=== PATIENT | female | born 1935 | race Caucasian/White ===

== ENCOUNTER 2021-02-07 08:59 | Observation (INO) ==
[2021-02-07 10:39] LABS: Basophils % 0.6 % (0.0-0.8); Eosinophils # 0.6 10*3/uL (0.0-0.87); Eosinophils % 9.3 % (0.00-10.9); Hematocrit 42.4 VOL% (35.7-47.0); Hemoglobin 12.8 GM/DL (12.0-16.0); Immature Granulocytes % 0.6 %; Immature Granulocytes Absolute 0.04 #; Lymphocytes # 1.7 10*3/uL (1.4-4.0); Lymphocytes % 26.4 % (21.3-54.2); Mean Corpuscular HGB Conc 30.2 GM/DL (32-36); Mean Corpuscular Volume 81.2 FL (87-102); Mean Platelet Volume 10.3 FL (9.6-12.0); Monocytes % 10.2 % (1.7-12.7); Neutrophils % 52.9 % (38.7-73.9); Platelet Count 313 T/CUMM (130-400); Red Blood Count 5.22 MC/CUMM (3.8-5.5); Red Cell Distribution Width 15.3 % (9.3-17.3); White Blood Count 6.3 T/CUMM (4-12)
[2021-02-07 10:54] LABS: Alanine Aminotransferase 18 U/L (13-56); Albumin 3.9 G/DL (3.4-5.0); Alkaline Phosphatase 83 U/L (45-117); Aspartate Amino Transferase 10 U/L (0-37); Bilirubin,Total < 0.39 MG/DL (0.20-1.00); Blood Urea Nitrogen 18 MG/DL (7-18); Calcium 9.2 MG/DL (8.5-10.1); Carbon Dioxide 27 MMOL/L (21-32); Estimated Glom Filtration Rate 66 ML/MIN; Glucose 96 MG/DL (74-106); Osmolality,Calculated 289.7 MOS/KG (273-304); Potassium 4.3 MMOL/L (3.5-5.1); Sodium 145 MMOL/L (136-145); Total Protein 6.9 G/DL (6.4-8.2)
[2021-02-07] MEDS ORDERED: hydrALAZINE 20 MG/1 ML VIAL IV STA (15:59)
[2021-02-07] MEDS ORDERED: LABETALOL 20 MG/4 ML SYRINGE IV STA (17:08)
[2021-02-07] MEDS ORDERED: LORazepam 2 MG/1 ML VIAL IM STA (17:20)
[2021-02-07 17:59] LABS: Bilirubin,Urine Negative (Negative); Blood, Urine Negative (Negative); Glucose,Urine (UA) Negative (Negative); Ketones,Urine Negative (Negative); Nitrite,Urine Negative (Negative); Protein,Urine Negative; RBC,Urine 3 /HPF (0-4); Squamous Epithelial Cell,Urine Occasional /HPF (0-10); Urine Appearance CLEAR (Clear); Urine Color Straw (Yellow); Urine Specific Gravity 1.008 (1.001-1.035); Urine Urobilinogen < 2.0 EU/DL (<2.0)
[2021-02-07] MEDS ORDERED: hydrALAZINE 20 MG/1 ML VIAL IV PRN (18:34)
[2021-02-07] MEDS ORDERED: ONDANSETRON 4 MG/2 ML VIAL IV PRN (18:34)
[2021-02-07] MEDS ORDERED: ACETAMINOPHEN 325 MG TABLET PO PRN (18:34)
[2021-02-07] MEDS ORDERED: LORazepam 2 MG/1 ML VIAL IV PRN (18:45)
[2021-02-07] MEDS ORDERED: MECLIZINE 25 MG TABLET PO PRN (18:56)
[2021-02-08] MEDS ORDERED: cycloSPORINE OPH EMUL 1 VIAL BOTH EYES PRN (00:57)
[2021-02-08] MEDS ORDERED: CYANOCOBALAMIN 1000 MCG/1 ML VIAL IM SCH (01:00)
[2021-02-08] MEDS ORDERED: TOPIRAMATE 100 MG TABLET PO SCH (01:00)
[2021-02-08] MEDS ORDERED: GABAPENTIN 600 MG TABLET PO ONE (01:01)
[2021-02-08] MEDS ORDERED: BENZONATATE 100 MG CAPSULE PO PRN (01:13)
[2021-02-08] MEDS ORDERED: ALBUTEROL 2.5 MG/3 ML NEB RESP TX PRN (01:24)
[2021-02-08] MEDS ORDERED: CARBOXYMETHYLCELLULOSE 1% OPH SOLN BOTH EYES PRN (01:25)
[2021-02-08] MEDS: BUDESONIDE/FORMOTEROL 160-4.5 INHALER 6 GM INH SCH ×3 (02:23→09:46)
[2021-02-08] MEDS ORDERED: ALBUTEROL/IPRATROPIUM 3 ML NEB RESP TX SCH (07:00)
[2021-02-08 07:26] LABS: Basophils % 0.5 % (0.0-0.8); Eosinophils # 0.5 10*3/uL (0.0-0.87); Eosinophils % 6.1 % (0.00-10.9); Hematocrit 39.9 VOL% (35.7-47.0); Immature Granulocytes % 0.4 %; Immature Granulocytes Absolute 0.03 #; Lymphocytes # 1.5 10*3/uL (1.4-4.0); Lymphocytes % 19.3 % (21.3-54.2); Mean Corpuscular HGB Conc 30.1 GM/DL (32-36); Mean Platelet Volume 9.9 FL (9.6-12.0); Monocytes % 8.5 % (1.7-12.7); Neutrophils % 65.2 % (38.7-73.9); Platelet Count 293 T/CUMM (130-400); Red Blood Count 4.99 MC/CUMM (3.8-5.5); Red Cell Distribution Width 15.4 % (9.3-17.3); White Blood Count 7.6 T/CUMM (4-12)
[2021-02-08 07:52] LABS: Albumin 3.5 G/DL (3.4-5.0); Bilirubin,Total 0.5 MG/DL (0.20-1.00); Calcium 8.5 MG/DL (8.5-10.1); Osmolality,Calculated 280.5 MOS/KG (273-304); Potassium 3.9 MMOL/L (3.5-5.1); Total Protein 6.3 G/DL (6.4-8.2)
[2021-02-08] MEDS ORDERED: NON-FORMULARY MEDICATION TOP SCH (09:00)
[2021-02-08] MEDS ORDERED: MONTELUKAST 10 MG TABLET PO SCH (09:00)
[2021-02-08] MEDS ORDERED: PANTOPRAZOLE 40 MG TABLET PO SCH (09:00)
[2021-02-08] MEDS ORDERED: GABAPENTIN 600 MG TABLET PO SCH (09:00)
[2021-02-08] MEDS ORDERED: ENOXAPARIN 40 MG/0.4 ML SYRINGE SUBCUT SCH (09:00)
[2021-02-08] MEDS ORDERED: ASPIRIN EC 81 MG TABLET PO SCH (09:00)
[2021-02-08] MEDS: THEOPHYLLINE ER 300 MG TABLET PO SCH ×2 (09:20→09:33)
[2021-02-08] MEDS: CHOLECALCIFEROL 5,000 UNIT TABLET PO SCH ×2 (09:21→09:36)
[2021-02-08] MEDS ORDERED: METOPROLOL TARTRATE 25 MG TABLET PO SCH (09:30)
[2021-02-08] MEDS ORDERED: DICLOFENAC 1% GEL 100 GM TUBE TOP PRN (12:00)
[2021-02-08 12:05] VITALS: BP 145/62
[2021-02-08] MEDS ORDERED: ZALEPLON 5 MG CAPSULE PO SCH (21:00)
[2021-02-09] MEDS ORDERED: THEOPHYLLINE ER 300 MG TABLET PO SCH (09:00)
== END 2021-02-08 12:15 | disposition home or self-care (01) ==
LOC: N.ED 08:59 → N.TELES 08:59 → SUATTDRO 18:34 → N.TELES 19:55
PROVIDERS: ADMIT Hospitalist; ATTEND Internal Medicine